=== PATIENT | female | born 1950 | race Caucasian/White ===

== ENCOUNTER 2018-03-12 20:04 | Emergency (ER) | payer BC ==
[2018-03-12 20:21] VITALS: BP 147/74
[2018-03-12] MEDS ORDERED: Silver Sulfadiazine 1%* 20 GM TOPICAL ONE (20:34)
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
== END 2018-03-12 21:05 | disposition home or self-care (01) ==
LOC: UCEAST 20:04
DX: T24.211A Burn of second degree of right thigh, initial encounter (principal); L03.115 Cellulitis of right lower limb; X19.XXXA Contact with other heat and hot substances, initial encounter; Y93.89 Activity, other specified; Y92.9 Unspecified place or not applicable
CPT/HCPCS: 16020; 99202; A9270-GY; G0463